=== PATIENT | female | born 1985 | race American Indian/Alaskan Native ===

== ENCOUNTER 2020-03-30 06:46 | Emergency (ER) | payer BC, OTHER ==
[2020-03-30 07:19] LABS: Bacteria,Urine 1+ /HPF (Negative); Bilirubin,Urine NEG (Negative); Blood,Urine NEG (Negative); Color,Urine Yellow (Yellow); Mucus,Urine 1+ /HPF; Protein,Urine <15 mg/dL mg/dL (Negative); RBC,Urine < 1.0 /HPF (0.0-6.0); Urobilinogen,Urine < 2.0 mg/dL (<2.0)
[2020-03-30 07:20] LABS: HCG Qualitative,Urine Negative (Negative)
--- NOTE | 2020-03-30 08:30 | Emergency Department Report ---
HPI - General Chief Complaint: Urogenital-Female Time Seen by Provider: 03/30/20 08:19 - [facility] HPI: Room 30 The patient is a 34-year-old female present with a chief complaint of malodorous urine. The patient states approximate 1 month ago she noticed her urine had an odor. The patient states she had some antibiotic leftover from a previous treatment so she took those (amoxicillin once a day x8 days). Patient states the dysuria had improved but her urine continues to be odorous. Patient denies vaginal discharge fever or pelvic pain. Patient admits she has developed itching in her groin ED Past Medical Hx - Past Medical History Previous Medical History?: No - Surgical History Past Surgical History?: Yes Additional Surgical History: x1 - Family History Family history: no significant - Social History Smoking Status: Never Smoker Substance Use Type: None (Denies illicit drug use) - Medications Home Medications: Home Medications Medication Instructions Recorded Confirmed Last Taken Type Omeprazole [PriLOSEC] 20 mg PO QDAY #30 capsule. 02/05/15 Unknown Rx traMADoL [Ultram] 50 mg PO Q6HR PRN #14 tablet 02/05/15 Unknown Rx levoFLOXacin [Levaquin TAB] 500 mg PO QDAY #10 tablet 03/30/20 Unknown Rx ED Review of Systems ROS: Stated complaint: URINE INFECTION Other details as noted in HPI Constitutional: denies: fever Eyes: denies: eye pain ENT: denies: throat pain Respiratory: no symptoms reported Cardiovascular: denies: chest pain Endocrine: no symptoms reported Gastrointestinal: denies: abdominal pain Musculoskeletal: denies: back pain Neurological: denies: headache Physical Exam - Physical Exam Physical Exam: GENERAL: The patient is well-developed well-nourished female sitting in chair not appearing to be in acute distress. [] HEENT: Normocephalic. Atraumatic. Extraocular motions are intact. Patient has moist mucous membranes. NECK: Supple. Trachea midline CHEST/LUNGS: There is no respiratory distress noted. ABDOMEN: Abdomen is soft, nontender. Patient has normal bowel sounds. There is no abdominal distention. SKIN: There is no rash. There is no edema. There is no diaphoresis. NEURO: The patient is awake, alert, and oriented. The patient is cooperative. The patient has normal speech MUSCULOSKELETAL: There is no evidence of acute injury. ED Medical Decision Making - Lab Data Laboratory Tests 03/30/20 07:08 Urine Color Yellow Urine Turbidity Clear Urine pH 6.0 Ur Specific [place] 1.025 Urine Protein <15 mg/dl Urine Glucose (UA) Neg Urine Ketones Neg Urine Blood Neg Urine Nitrite Neg Urine Bilirubin Neg Urine Urobilinogen < 2.0 Ur Leukocyte Esterase Tr Urine WBC (Auto) 7.0 H Urine RBC (Auto) < 1.0 U Epithel Cells (Auto) 1.0 Urine Bacteria (Auto) 1+ Urine Mucus 1+ Urine HCG, Qual Negative Wet prep-no clue cells, trichomonas or yeast - Differential Diagnosis UTI, urethritis, bacterial vaginosis, vaginal candidiasis Critical care attestation.: If time is entered above; I have spent that time in minutes in the direct care of this critically ill patient, excluding procedure time. ED Disposition Clinical Impression: UTI (urinary tract infection) Disposition: TO HOME OR SELFCARE Is pt being admited?: No Does the pt Need Aspirin: No Condition: Stable Instructions: Urinary Tract Infection, Adult Additional Instructions: Return to the emergency department should you develop worsening symptoms, inability to tolerate food or liquids, high fever or any other concerns Prescriptions: levoFLOXacin [Levaquin TAB] 500 mg PO QDAY #10 tablet Referrals: PRIMARY CAREMD [Primary Care Provider] - 3-5 Days KENJI ANDREW JR, MD [Staff Physician] - 3-5 Days (Dr. Andrew is a principle industrial hygienist. Please follow-up with him for further evaluation if you do not already have a principle industrial hygienist) Time of Disposition: 09:26
== END 2020-03-30 09:31 | disposition home or self-care (01) ==
LOC: ED 06:46
DX: N39.0 Urinary tract infection, site not specified (principal); Z79.899 Other long term (current) drug therapy
CPT/HCPCS: 81001; 81025; 87210; 87591; 99283

== ENCOUNTER 2020-12-27 03:32 | Emergency (ER) | payer SELFPAY ==
--- NOTE | 2020-12-27 04:18 | Emergency Department Report ---
<ANDERSON ORELLANA - Last Filed: 12/27/20 08:23> ED Chest Pain HPI - General Chief Complaint: Chest Pain Stated Complaint: NEHA Time Seen by Provider: 12/27/20 04:08 - Related Data Previous Rx's Medication Instructions Recorded Last Taken Type Omeprazole [PriLOSEC] 20 mg PO QDAY #30 capsule. 02/05/15 Unknown Rx traMADoL [Ultram] 50 mg PO Q6HR PRN #14 tablet 02/05/15 Unknown Rx levoFLOXacin [Levaquin TAB] 500 mg PO QDAY #10 tablet 03/30/20 Unknown Rx Naproxen [Naprosyn] 500 mg PO BID #20 tablet 12/27/20 Unknown Rx Allergies Allergy/AdvReac Type Severity Reaction Status Date / Time No Known Allergies Allergy Verified 12/27/20 03:57 ED Past Medical Hx - Medications Home Medications: Home Medications Medication Instructions Recorded Confirmed Last Taken Type Omeprazole [PriLOSEC] 20 mg PO QDAY #30 capsule. 02/05/15 Unknown Rx traMADoL [Ultram] 50 mg PO Q6HR PRN #14 tablet 02/05/15 Unknown Rx levoFLOXacin [Levaquin TAB] 500 mg PO QDAY #10 tablet 03/30/20 Unknown Rx Naproxen [Naprosyn] 500 mg PO BID #20 tablet 12/27/20 Unknown Rx ED Medical Decision Making - Lab Data Result diagrams: 12/27/20 04:35 12/27/20 04:35 - Radiology Data Radiology results: report reviewed, image reviewed - Medical Decision Making Patient was signed out to me by previous physician. 35-year-old female presents to ED with pleuritic chest pain. Vital signs are stable. EKG shows no ST changes. Labs are normal except for elevated D-dimer. CTA chest is negative for PE or any other acute findings. Patient appears comfortable, no acute distress. She will be discharged at this time. Outpatient follow-up advised. Return precautions given. ED Disposition Clinical Impression: Chest pain Disposition: 01 HOME / SELF CARE / HOMELESS Is pt being admited?: No Condition: Stable Instructions: Nonspecific Chest Pain, Adult Prescriptions: Naproxen [Naprosyn] 500 mg PO BID #20 tablet Referrals: [facility] [Provider Group] - 3-5 Days Time of Disposition: 08:12 <JEROME MC - Last Filed: 12/29/20 06:14> ED Chest Pain HPI - General Source: patient Mode of arrival: Ambulatory Limitations: No Limitations - History of Present Illness Initial Comments: Patient is 35-year-old female with no significant past medical history. Patient presented to the ER complaining of left sided chest pain. Patient described her pain as sharp with no radiation. Patient stated that pain started yesterday. Patient stated that she is having some difficulty breathing. She denied any fever or chills. No nausea or vomiting. No abdominal pain. MD Complaint: chest pain -: Last night Onset: during rest Pain Location: left chest Pain Radiation: none Severity scale (0 -10): 5 Quality: sharp Improves With: nothing Worsens With: nothing Heart Score - HEART Score History: Slightly suspicious EKG: Non-specific Age: < 45 Risk factors: No known risk factors Troponin: < normal limit HEART Score: 1 - EKG Read Time Time EKG Completed: 04:12 EKG Read Time: 14:12 - Critical Actions Critical Actions: 0-3 pts:0.9-1.7%risk of adverse cardiac event.Candidate for discharge ED Review of Systems ROS: Stated complaint: NEHA Other details as noted in HPI Comment: All other systems reviewed and negative Constitutional: denies: chills, fever Respiratory: denies: cough, shortness of breath, SOB with exertion Cardiovascular: chest pain. denies: palpitations Gastrointestinal: denies: abdominal pain, nausea, vomiting Neurological: denies: headache, weakness, numbness, paresthesias, confusion ED Past Medical Hx - Past Medical History Previous Medical History?: No - Surgical History Additional Surgical History: x1 - Social History Smoking Status: Never Smoker Substance Use Type: None ED Physical Exam - General Limitations: No Limitations General appearance: alert, in no apparent distress - Head Head exam: Present: atraumatic, normocephalic, normal inspection - Eye Eye exam: Present: normal appearance - ENT ENT exam: Present: normal exam, normal orophraynx, mucous membranes moist - Neck Neck exam: Present: normal inspection, full ROM. Absent: tenderness, meningismus - Respiratory Respiratory exam: Present: normal lung sounds bilaterally - Cardiovascular Cardiovascular Exam: Present: regular rate, normal rhythm, normal heart sounds - GI/Abdominal GI/Abdominal exam: Present: soft, normal bowel sounds. Absent: distended, tenderness, guarding, rebound, rigid, organomegaly, mass, bruit, hernia - Extremities Exam Extremities exam: Present: normal inspection, full ROM, normal capillary refill. Absent: tenderness - Back Exam Back exam: Present: normal inspection, full ROM. Absent: CVA tenderness (R), CVA tenderness (L) - Neurological Exam Neurological exam: Present: alert, oriented X3, CN II-XII intact, normal gait, reflexes normal - Psychiatric Psychiatric exam: Present: normal mood - Skin Skin exam: Present: warm, intact, normal color ED Course Vital Signs 12/27/20 12/27/20 12/27/20 03:55 03:56 06:35 Temperature 97.6 F Pulse Rate 63 56 L Respiratory 19 Rate Blood Pressure 121/63 105/59 O2 Sat by Pulse 100 100 Oximetry 12/27/20 08:27 Temperature 98.0 F Pulse Rate 65 Respiratory 16 Rate Blood Pressure 102/56 O2 Sat by Pulse 100 Oximetry ED Medical Decision Making - Lab Data Result diagrams: 12/27/20 04:35 12/27/20 04:35 Critical care attestation.: If time is entered above; I have spent that time in minutes in the direct care of this critically ill patient, excluding procedure time.
[2020-12-27 04:47] LABS: Basophils % (Auto) 0.7 % (0.0-1.8); Eosinophils # (Auto) 0.1 K/mm3 (0.0-0.4); Eosinophils % (Auto) 2.1 % (0.0-4.3); Hemoglobin 12.5 gm/dl (10.1-14.3); Lymphocytes # (Auto) 2.1 K/mm3 (1.2-5.4); Lymphocytes % (Auto) 31.6 % (13.4-35.0); Mean Corpuscular HGB Conc 35 % (30-34); Mean Corpuscular Volume 93 fl (79-97); Monocytes # (Auto) 0.7 K/mm3 (0.0-0.8); Monocytes % (Auto) 10.3 % (0.0-7.3); Platelet Count 248 K/mm3 (140-440); Red Blood Count 3.88 M/mm3 (3.65-5.03); Red Cell Distribution Width 12.6 % (13.2-15.2)
[2020-12-27 05:26] LABS: Blood Urea Nitrogen 9 mg/dL (7-17); Calcium 8.8 mg/dL (8.4-10.2); Hemolysis Index 3
[2020-12-27 05:31] LABS: BUN/Creatinine Ratio 13
--- NOTE | 2020-12-27 06:01 | XRay Report ---
CHEST 2 VIEWS INDICATION / CLINICAL INFORMATION: Chest Pain. COMPARISON: None available. FINDINGS: SUPPORT DEVICES: None. HEART / MEDIASTINUM: No significant abnormality. LUNGS / PLEURA: No significant pulmonary or pleural abnormality. No pneumothorax. ADDITIONAL FINDINGS: No significant additional findings. IMPRESSION: 1. No acute findings. Signer Name: Tico Ibrahim MD Signed: 12/27/2020 5:56 AM Workstation Name: [id number]
[2020-12-27] MEDS ORDERED: MORPHINE 2 MG/1 ML INJ IV ONE (06:27)
--- NOTE | 2020-12-27 07:55 | Cat Scan Report ---
CTA CHEST WITH CONTRAST INDICATION : CHEST PAIN WITH SOB, ELEVATED D-DIMER. TECHNIQUE: Axial imaging performed through the chest, with contrast bolus timing set to maximize opa cification of the pulmonary arteries. Sagittal and coronal reformatted images. 3-plane MIP reformatte d images were obtained. All CT scans at this location are performed using CT dose reduction for ALAR A by means of automated exposure control. Omnipaque 350 100 mL of intravenous contrast administered. COMPARISON: Chest x-ray performed the same day FINDINGS: Bolus: Contrast bolus timing is adequate. PTE: No filling defect is present to suggest PTE. Mediastinum: Heart and great vessels appear normal. No pathologic mediastinal adenopathy. Lungs: The lungs are clear with no evidence for parenchymal lung disease, acute infiltrate, pleural fluid or pneumothorax. Bones: Degenerative changes in the spine with nothing acute. Upper abdomen: Limited imaging of the upper abdomen shows nothing acute. IMPRESSION: Negative for PTE. Clear lungs. Signer Name: Emmanuel Shanks Jr, MD Signed: 12/27/2020 7:50 AM Workstation Name: [id number]
[2020-12-27 08:47] VITALS: BP 102/56
--- NOTE | 2021-02-21 10:36 | Electrocardiograph Report ---
[facility] Test Date: 2020-12-27 Test Time: 04:08:39 Pat Name: OTTONIEL MARTINEZ Department: Room: Gender: F [employer]: [id number] : 1985 Requested By: JEROME MC Order Number: [id number] Reading MD: Reza Saravia Measurements Intervals [place] Rate: 61 P: 70 NV: 172 QRS: 72 QRSD: 77 T: 59 QT: 392 QTc: 394 Interpretive Statements Sinus rhythm Anteroseptal infarct, age indeterminate No previous ECG available for comparison Electronically Signed On 02-21-2021 10:36:30 EST by Reza Saravia
== END 2020-12-27 08:45 | disposition home or self-care (01) ==
LOC: ED 03:32
DX: R07.89 Other chest pain (principal); Z98.890 Other specified postprocedural states
CPT/HCPCS: 36415; 71046; 71275; 80048; 84484; 84703; 85025; 85379; 93005; 96374; 99284; J2270; Q9967